=== PATIENT | male | born 1950 | race Caucasian/White ===

== ENCOUNTER 2020-05-31 01:29 | Inpatient (IN) | payer MEDICARE, OTHER ==
[2020-05-31] MEDS ORDERED: Phytonadione ORAL 2.5mg/2.5ml Soln Simple Syrup U/D PO ONE (02:04)
[2020-05-31] MEDS ORDERED: Ondansetron 4 MG/2 ML SDV IVPUSH PRN (02:05)
[2020-05-31] MEDS: Lactated Ringers 1,000 ML IV SCH ×2 (02:20→16:28)
[2020-05-31] MEDS: HYDROmorphone 1 MG/ML Syringe IVPUSH PRN ×2 (02:23→06:00)
--- NOTE | 2020-05-31 08:12 | PCM.PREANE ---
Preanesthetic Assessment - Anesthesia/Transfusion/Family Hx Anesthesia History: Prior Anesthesia Without Reaction Other Type of Anesthesia Reaction Comment: pt reports he get nauseated Family History of Anesthesia Reaction: No Transfusion History: Unknown - Review of Systems General: No Symptoms Pulmonary: No Symptoms, Other (, CPAP) Cardiovascular: No Symptoms, Other (s/p 2 stents 2014, on blood thinner, denies any cp since stents, EF reported at 42% in 2015, pt does have thoracic aortic aneurysm being monitored) Gastrointestinal: Abdominal Pain (started last night), Other (hiatal hernia present) Neurological: No Symptoms Other: Reports: Easy Bleeding, Easy Bruising (pt on coumadin), Diabetes (type 2) - Physical Assessment NPO Status Date: 05/30/20 NPO Status Time: 12:00 Vital Signs: Last Vital Signs Temp 37.2 C 05/31/20 01:47 Pulse 70 05/31/20 01:47 Resp 18 05/31/20 01:47 BP 143/84 H 05/31/20 01:47 Pulse Ox 100 05/31/20 01:47 Height: 1.8 m Weight: 119.612 kg ASA Class: 3 Mental Status: Alert & Oriented x3 Airway Class: Mallampati = 2 Dentition: Reports: Normal Dentition Thyro-Mental Finger Breadths: 3 Mouth Opening Finger Breadths: 3 ROM/Head Extension: Full Lungs: Clear to Auscultation, Normal Respiratory Effort Cardiovascular: Regular Rate, Regular Rhythm, No Murmurs - Lab Values: Laboratory Last Values WBC 11.51 K/mm3 (4.23-9.07) H 05/31/20 06:05 RBC 4.43 M/mm3 (4.63-6.08) L 05/31/20 06:05 Hgb 14.5 gm/dl (13.7-17.5) 05/31/20 06:05 Hct 43.7 % (40.1-51.0) 05/31/20 06:05 MCV 98.6 fl (79.0-92.2) H 05/31/20 06:05 MCH 32.7 pg (25.7-32.2) H 05/31/20 06:05 MCHC 33.2 g/dl (32.2-35.5) 05/31/20 06:05 RDW Std Deviation 44.7 fL (35.1-43.9) H 05/31/20 06:05 Plt Count 181 K/mm3 (163-337) 05/31/20 06:05 MPV 10.2 fl (9.4-12.3) 05/31/20 06:05 Neut % (Auto) 80.6 % (34.0-67.9) H 05/31/20 06:05 Lymph % (Auto) 10.2 % (21.8-53.1) L 05/31/20 06:05 [place] % (Auto) 8.3 % (5.3-12.2) 05/31/20 06:05 Eos % (Auto) 0.6 (0.8-7.0) L 05/31/20 06:05 Baso % (Auto) 0.2 % (0.1-1.2) 05/31/20 06:05 Neut # (Auto) 9.29 K/mm3 (1.78-5.38) H 05/31/20 06:05 Lymph # (Auto) 1.17 K/mm3 (1.32-3.57) L 05/31/20 06:05 [place] # (Auto) 0.95 K/mm3 (0.30-0.82) H 05/31/20 06:05 Eos # (Auto) 0.07 K/mm3 (0.04-0.54) 05/31/20 06:05 Baso # (Auto) 0.02 K/mm3 (0.01-0.08) 05/31/20 06:05 PT 35.6 SECONDS (9.7-11.7) H 05/31/20 06:05 INR 3.41 05/31/20 06:05 Sodium 139 mEq/L (136-145) 05/31/20 06:05 Potassium 4.4 mEq/L (3.5-5.1) 05/31/20 06:05 Chloride 102 mEq/L (98-107) 05/31/20 06:05 Carbon Dioxide 27 mEq/L (21-32) 05/31/20 06:05 Anion Gap 14.4 (5-15) 05/31/20 06:05 BUN 13 mg/dL (7-18) 05/31/20 06:05 Creatinine 1.2 mg/dL (0.7-1.3) 05/31/20 06:05 Est Cr Clr Drug Dosing 62.75 mL/min 05/31/20 06:05 Estimated GFR (MDRD) > 60 mL/min (>60) 05/31/20 06:05 BUN/Creatinine Ratio 10.8 (14-18) L 05/31/20 06:05 Glucose 132 mg/dL (80-115) H 05/31/20 06:05 Calcium 8.9 mg/dL (8.5-10.1) 05/31/20 06:05 - Allergies Allergies/Adverse Reactions: Allergies Allergy/AdvReac Type Severity Reaction Status Date / Time morphine AdvReac Nausea and Verified 05/31/20 10:58 Vomiting Abbkcim-Uom-Mct Reductase AdvReac Other Verified 05/31/20 10:58 Inhibitor - Blood Blood Available: No Product(s) Available: None - Anesthesia Plan Beta Meka: Metoprolol Med Last Dose Date: 05/30/20 Med Last Dose Time: 20:00 - Acknowledgements Anesthesia Type Planned: General Anesthesia Pt an Appropriate Candidate for the Planned Anesthesia: Yes Alternatives and Risks of Anesthesia Discussed w Pt/Guardian: Yes Pt/Guardian Understands and Agrees with Anesthesia Plan: Yes PreAnesthesia Questionnaire HEENT History: Reports: Impaired Vision, Other (See Below) Other HEENT History: pt wears glasses and is missing 3 teeth Respiratory History: Reports: Sleep Apnea Other Respiratory History: pt wears a cpap machine at night Gastrointestinal History: Reports: Other (See Below) Endocrine/Metabolic History: Reports: Obesity/BMI 30+ - Infectious Disease History Infectious Disease History: Reports: Mumps, Other (See Below) Other Infectious Disease History: pt doesn't remember if he has hadf for the childhood illnesses. - Past Surgical History HEENT Surgical History: Reports: None Cardiovascular Surgical History: Reports: Other (See Below) Other Cardiovascular Surgeries/Procedures: vena cava filter, [address] Male Surgical History: Reports: None Endocrine Surgical History: Reports: Adrenal Gland Oncologic Surgical History: Reports: None - SUBSTANCE USE Tobacco Use Status *Q: Never Tobacco User Second Hand Smoke Exposure: No Recreational Drug Use History: No - CURRENT (IN HOUSE) MEDS Current Meds: Current Medications Hydromorphone HCl (Dilaudid) 1 mg IVPUSH Q2H PRN PRN Reason: Pain Last Admin: 05/31/20 06:00 Dose: 1 mg Documented by: Lactated Ringer's (Ringers, Lactated) 1,000 mls @ 100 mls/hr IV ASDIRECTED [place] Last Admin: 05/31/20 02:20 Dose: 100 mls/hr Documented by: Ondansetron HCl (Zofran) 4 mg IVPUSH Q6H PRN PRN Reason: Nausea Discontinued Medications Phytonadione (Aquamephyton) 5 mg PO ONETIME ONE Stop: 05/31/20 02:05 Last Admin: 05/31/20 02:21 Dose: 5 mg Documented by:
[2020-05-31] MEDS ORDERED: Sodium Chloride 0.9% 250 ML IV SCH (10:45)
[2020-05-31] MEDS ORDERED: Sodium Chloride 0.9% 250 ML ONE (10:46)
--- NOTE | 2020-05-31 11:23 | PCM.HP.2 ---
H&P History of Present Illness - General Date of Service: 05/31/20 Admit Problem/Dx: Admission Diagnosis/Problem Admission Diagnosis/Problem Appendicitis Source of Information: Patient History Limitations: Reports: No Limitations - History of Present Illness Initial Comments - Free Text/Narative: Patient had RLQ abdominal pain for 4 days. It was mild to moderate. Yesterday it became acutely severe after he had dinner. It became 10/10, located in the RLQ, non-radiating, sharp, better with immobilization. He denies any fevers, chills, no prior intraabdominal operations. Onset of Symptoms: Reports: Gradual Duration of Symptoms: Reports: Day(s): (4), Getting Worse Location: Reports: Abdomen Quality: Reports: Sharp Severity: Severe Improves with: Reports: Immobilization Worsens with: Reports: Eating, Movement Associated Symptoms: Reports: No Other Symptoms Abdominal Pain Score (Numeric/FACES): 8 - Related Data Allergies/Adverse Reactions: Allergies Allergy/AdvReac Type Severity Reaction Status Date / Time morphine AdvReac Nausea and Verified 05/31/20 10:58 Vomiting Irrakiv-Uoi-Fui Reductase AdvReac Other Verified 05/31/20 10:58 Inhibitor Past Medical History HEENT History: Reports: Impaired Vision, Other (See Below) Other HEENT History: pt wears glasses and is missing 3 teeth Respiratory History: Reports: Sleep Apnea Other Respiratory History: pt wears a cpap machine at night Gastrointestinal History: Reports: Other (See Below) Endocrine/Metabolic History: Reports: Obesity/BMI 30+ Do You Give Correction Boluses or Sliding Scale: No - Infectious Disease History Infectious Disease History: Reports: Mumps, Other (See Below) Other Infectious Disease History: pt doesn't remember if he has hadf for the childhood illnesses. - Past Surgical History HEENT Surgical History: Reports: None Cardiovascular Surgical History: Reports: Other (See Below) Other Cardiovascular Surgeries/Procedures: vena cava filter, [address] Male Surgical History: Reports: None Endocrine Surgical History: Reports: Adrenal Gland Oncologic Surgical History: Reports: None Social & Family History - Family History Family Medical History: Noncontributory - Tobacco Use Tobacco Use Status *Q: Never Tobacco User Second Hand Smoke Exposure: No - Caffeine Use Caffeine Use: Reports: Coffee Other Caffeine Use: 2-3 cups every day. very rarely a pop or a tea. - Recreational Drug Use Recreational Drug Use: No H&P Review of Systems - Review of Systems: Review Of Systems: See Below General: Reports: No Symptoms HEENT: Reports: No Symptoms Pulmonary: Reports: No Symptoms Cardiovascular: Reports: No Symptoms Gastrointestinal: Reports: Abdominal Pain Genitourinary: Reports: No Symptoms Musculoskeletal: Reports: Shoulder Pain, Back Pain Neurological: Reports: Other (bilateral foot neuropathy) Exam - Exam Exam: See Below - Vital Signs Vital Signs: Last Vital Signs Temp 99.0 F 05/31/20 01:47 Pulse 70 05/31/20 01:47 Resp 18 05/31/20 01:47 BP 143/84 H 05/31/20 01:47 Pulse Ox 100 05/31/20 01:47 Weight: 119.612 kg - Exam General: Alert, Oriented, Cooperative HEENT: Conjunctiva Clear Lungs: Clear to Auscultation, Normal Respiratory Effort Cardiovascular: Regular Rate, Regular Rhythm, Normal S1, Normal S2 GI/Abdominal Exam: Soft, No Organomegaly, No Abnormal Bruit, No Mass, Pelvis Stable, Distended (slightly), Tender (RLQ,) - Patient Data Lab Results Last 24 hrs: Laboratory Results - last 24 hr 05/31/20 05/31/20 05/31/20 Range/Units 06:05 06:05 06:05 WBC 11.51 H (4.23-9.07) K/mm3 RBC 4.43 L (4.63-6.08) M/mm3 Hgb 14.5 (13.7-17.5) gm/dl Hct 43.7 (40.1-51.0) % MCV 98.6 H (79.0-92.2) fl MCH 32.7 H (25.7-32.2) pg MCHC 33.2 (32.2-35.5) g/dl RDW Std Deviation 44.7 H (35.1-43.9) fL Plt Count 181 (163-337) K/mm3 MPV 10.2 (9.4-12.3) fl Neut % (Auto) 80.6 H (34.0-67.9) % Lymph % (Auto) 10.2 L (21.8-53.1) % [place] % (Auto) 8.3 (5.3-12.2) % Eos % (Auto) 0.6 L (0.8-7.0) Baso % (Auto) 0.2 (0.1-1.2) % Neut # (Auto) 9.29 H (1.78-5.38) K/mm3 Lymph # (Auto) 1.17 L (1.32-3.57) K/mm3 [place] # (Auto) 0.95 H (0.30-0.82) K/mm3 Eos # (Auto) 0.07 (0.04-0.54) K/mm3 Baso # (Auto) 0.02 (0.01-0.08) K/mm3 PT 35.6 H (9.7-11.7) SECONDS INR 3.41 Sodium 139 (136-145) mEq/L Potassium 4.4 (3.5-5.1) mEq/L Chloride 102 (98-107) mEq/L Carbon Dioxide 27 (21-32) mEq/L Anion Gap 14.4 (5-15) BUN 13 (7-18) mg/dL Creatinine 1.2 (0.7-1.3) mg/dL Est Cr Clr Drug Dosing 62.75 mL/min Estimated GFR (MDRD) > 60 (>60) mL/min BUN/Creatinine Ratio 10.8 L (14-18) Glucose 132 H (80-115) mg/dL Calcium 8.9 (8.5-10.1) mg/dL Blood Type 05/31/20 Range/Units 06:05 WBC (4.23-9.07) K/mm3 RBC (4.63-6.08) M/mm3 Hgb (13.7-17.5) gm/dl Hct (40.1-51.0) % MCV (79.0-92.2) fl MCH (25.7-32.2) pg MCHC (32.2-35.5) g/dl RDW Std Deviation (35.1-43.9) fL Plt Count (163-337) K/mm3 MPV (9.4-12.3) fl Neut % (Auto) (34.0-67.9) % Lymph % (Auto) (21.8-53.1) % [place] % (Auto) (5.3-12.2) % Eos % (Auto) (0.8-7.0) Baso % (Auto) (0.1-1.2) % Neut # (Auto) (1.78-5.38) K/mm3 Lymph # (Auto) (1.32-3.57) K/mm3 [place] # (Auto) (0.30-0.82) K/mm3 Eos # (Auto) (0.04-0.54) K/mm3 Baso # (Auto) (0.01-0.08) K/mm3 PT (9.7-11.7) SECONDS INR Sodium (136-145) mEq/L Potassium (3.5-5.1) mEq/L Chloride (98-107) mEq/L Carbon Dioxide (21-32) mEq/L Anion Gap (5-15) BUN (7-18) mg/dL Creatinine (0.7-1.3) mg/dL Est Cr Clr Drug Dosing mL/min Estimated GFR (MDRD) (>60) mL/min BUN/Creatinine Ratio (14-18) Glucose (80-115) mg/dL Calcium (8.5-10.1) mg/dL Blood Type A POSITIVE Result Diagrams: 05/31/20 06:05 05/31/20 06:05 Sepsis Event Note - Evaluation Sepsis Screening Result: No Definite Risk - Focused Exam Vital Signs: Vital Signs Temp Pulse Resp BP Pulse Ox 05/31/20 01:47 99.0 F 70 18 143/84 H 100 Problem List Initiated/Reviewed/Updated: No Orders Last 24hrs: Active Orders 24 hr Category Date Time Status Patient Status [ADT] Routine ADT 05/31/20 11:10 Ordered Ambulate [RC] ASDIRECTED Care 05/31/20 11:09 Ordered Antiembolic Devices [RC] PER UNIT ROUTINE Care 05/31/20 11:12 Ordered Bedrest Bathroom Privileges [RC] ASDIRECTED Care 05/31/20 02:07 Active Cardiac Monitoring [RC] CONTINUOUS Care 05/31/20 11:11 Ordered Intake and Output [RC] QSHIFT Care 05/31/20 11:11 Ordered Oxygen Therapy [RC] PRN Care 05/31/20 11:10 Ordered Pulse Oximetry [RC] PRN Care 05/31/20 11:11 Ordered Up ad Sandra [RC] ASDIRECTED Care 05/31/20 11:09 Ordered Up to Chair [RC] ASDIRECTED Care 05/31/20 11:09 Ordered VTE/DVT Education [RC] PER UNIT ROUTINE Care 05/31/20 11:10 Ordered Vital Signs [RC] Q4H Care 05/31/20 11:10 Ordered NPO Now [Nothing per Oral Now Diet] [DIET] Diet 05/31/20 Breakfast Active ABO/RH TYPE [BBK] Routine Lab 05/31/20 06:05 Results BASIC METABOLIC PANEL,BMP [CHEM] AM Lab 06/01/20 05:11 Ordered BASIC METABOLIC PANEL,BMP [CHEM] AM Lab 06/02/20 05:11 Ordered BASIC METABOLIC PANEL,BMP [CHEM] AM Lab 06/03/20 05:11 Ordered CBC WITH AUTO DIFF [HEME] AM Lab 06/01/20 05:11 Ordered CBC WITH AUTO DIFF [HEME] AM Lab 06/02/20 05:11 Ordered CBC WITH AUTO DIFF [HEME] AM Lab 06/03/20 05:11 Ordered FRESH FROZEN PLASMA [BBK] Routine Lab 05/31/20 06:05 Results INR,PT,PROTHROMBIN TIME [COAG] Timed Lab 05/31/20 14:00 Ordered MAGNESIUM [CHEM] AM Lab 06/01/20 05:11 Ordered MAGNESIUM [CHEM] AM Lab 06/02/20 05:11 Ordered MAGNESIUM [CHEM] AM Lab 06/03/20 05:11 Ordered PHOSPHORUS [CHEM] AM Lab 06/01/20 05:11 Ordered PHOSPHORUS [CHEM] AM Lab 06/02/20 05:11 Ordered PHOSPHORUS [CHEM] AM Lab 06/03/20 05:11 Ordered HYDROmorphone [Dilaudid] Med 05/31/20 11:09 Ordered 0.5 mg IVPUSH Q2H PRN HYDROmorphone [Dilaudid] Med 05/31/20 02:05 Active 1 mg IVPUSH Q2H PRN Lactated Ringers [Ringers, Lactated] 1,000 ml Med 05/31/20 02:15 Active IV ASDIRECTED Ondansetron [Zofran] Med 05/31/20 02:05 Active 4 mg IVPUSH Q6H PRN Piperacillin/Tazobactam [Piperacil-Tazobact] 4.5 gm Med 05/31/20 11:15 Ordered Sodium Chloride 0.9% [Normal Saline] 100 ml IV Q8H Sodium Chloride 0.9% [Normal Saline] 250 ml Med 05/31/20 10:45 Active IV ASDIRECTED Sequential Compression Device [OM.PC] Per Unit Routine Oth 05/31/20 11:11 Ordered Transfuse Fresh Frozen Plasma [COMM] Stat Oth 05/31/20 08:18 Ordered Transfuse Fresh Frozen Plasma [COMM] Stat Oth 05/31/20 08:18 Ordered Code Status [Resuscitation Status] Routine Resus Stat 05/31/20 02:09 Ordered Medication Orders Hydromorphone HCl (Dilaudid) 1 mg IVPUSH Q2H PRN PRN Reason: Pain Last Admin: 05/31/20 06:00 Dose: 1 mg Documented by: Admin: 05/31/20 02:23 Dose: 1 mg Documented by: AKILA Lactated Ringer's (Ringers, Lactated) 1,000 mls @ 100 mls/hr IV ASDIRECTED [place] Last Admin: 05/31/20 02:20 Dose: 100 mls/hr Documented by: AKILA Sodium Chloride (Normal Saline) 250 mls @ 100 mls/hr IV ASDIRECTED [place] Stop: 05/31/20 16:00 Piperacillin Sod/Tazobactam (Sod 4.5 gm/ Sodium Chloride) 100 mls @ 25 mls/hr IV Q8H [place] Ondansetron HCl (Zofran) 4 mg IVPUSH Q6H PRN PRN Reason: Nausea Assessment/Plan Comment:: Patient has acute appendicitis with focal perforation. Cecal base appears normal. I recommended we proceed with laparoscopic appendectomy, possible open. We discussed risks, benefits and alternatives and informed consent was obtained. Patient is on coumadin for hx of provokes DVT/PT in 1999 also has IVC filter placed in 1999. - Reverse INR which is currently at 3.4. Patient has received 5mg of Vit K last night. We will give FFP for this - 2 Units, check INR, if > 1.7 give another 2 units. We will plan to proceed to surgery when INR is < 1.5 - Zosyn at this time - NPO with IVF - Pain control with IV pain medications - All questions answered
[2020-05-31] MEDS ORDERED: Piperacillin/Tazobactam 4.5 GM in Sodium Chloride 0.9% 100 ML IV ONE (12:00)
[2020-05-31] MEDS ORDERED: Scopolamine 1.5 MG Transdermal Patch TRDERM PRN (12:15)
[2020-05-31] MEDS ORDERED: diphenhydrAMINE 50 MG/ML SDV IVPUSH ONE (13:02)
[2020-05-31] MEDS ORDERED: diphenhydrAMINE 50 MG/ML SDV ONE (13:06)
[2020-05-31] MEDS: HYDROmorphone 0.5 MG/0.5 ML Syringe IVPUSH PRN ×3 (15:42→21:54)
[2020-05-31] MEDS ORDERED: Phytonadione 5 MG in Sodium Chloride 0.9% 50 ML IV ONE ×2 (17:15→23:03)
[2020-05-31] MEDS: Piperacillin/Tazobactam 4.5 GM in Sodium Chloride 0.9% 100 ML IV SCH (20:01)
[2020-06-01] MEDS: HYDROmorphone 0.5 MG/0.5 ML Syringe IVPUSH PRN ×2 (00:33→02:33)
[2020-06-01] MEDS: Piperacillin/Tazobactam 4.5 GM in Sodium Chloride 0.9% 100 ML IV SCH ×3 (03:57→20:00)
[2020-06-01] MEDS ORDERED: Metoprolol Succinate 25 MG Tab.ER PO ONE (07:34)
[2020-06-01] MEDS ORDERED: Albuterol 0.083% 2.5 MG/3 ML Neb Soln NEB ONE (07:38)
[2020-06-01] MEDS: Lactated Ringers 1,000 ML IV SCH (07:58)
[2020-06-01] MEDS ORDERED: Rocuronium 50 MG/5 ML Vial ONE (08:53)
[2020-06-01] MEDS ORDERED: Lidocaine 1% 4 ML ONE (08:53)
[2020-06-01] MEDS ORDERED: Ondansetron 4 MG/2 ML SDV ONE (08:53)
[2020-06-01] MEDS ORDERED: Lactated Ringers 1,000 ML ONE (08:53)
[2020-06-01] MEDS ORDERED: Midazolam 1 MG/ML 2 ML SDV ONE (08:54)
[2020-06-01] MEDS ORDERED: fentaNYL 250 MCG/5 ML SDV ONE (08:54)
[2020-06-01] MEDS ORDERED: Propofol 200 MG/20 ML SDV ONE ×2 (08:54→10:31)
[2020-06-01] MEDS ORDERED: Succinylcholine/Sod PF 100 MG/5 ML SYRINGE IV ONE (08:54)
[2020-06-01] MEDS ORDERED: Ketorolac 30 MG/ML SDV ONE (08:55)
[2020-06-01] MEDS ORDERED: Dexamethasone 4 MG/ML 5 ML MDV ONE (08:55)
[2020-06-01] MEDS ORDERED: Ketamine 500 mg/10 ML MDV ONE (10:30)
[2020-06-01] MEDS: Bupivacaine 0.5% 30 ML SDV ONE ×2 (10:35→10:58)
[2020-06-01] MEDS ORDERED: Ondansetron 4 MG/2 ML SDV IVPUSH PRN (11:19)
[2020-06-01] MEDS ORDERED: HYDROmorphone 0.5 MG/0.5 ML Syringe IVPUSH PRN (11:19)
[2020-06-01] MEDS ORDERED: fentaNYL 100 MCG/2 ML SDV IVPUSH PRN (11:19)
[2020-06-01] MEDS ORDERED: Magnesium Sulfate/Water 2 GM/50 ML BAG IV ONE (12:00)
--- NOTE | 2020-06-01 12:01 | PCM.POSTAN ---
POST ANESTHESIA ASSESSMENT - MENTAL STATUS Mental Status: Other (Drowsy , arousable ) - VITAL SIGNS Vital Signs: Last Vital Signs Temp 37.1 C 06/01/20 07:56 Pulse 61 06/01/20 07:56 Resp 14 06/01/20 07:56 BP 122/68 06/01/20 07:56 Pulse Ox 95 06/01/20 09:00 - RESPIRATORY Respiratory Status: Respiratory Rate WNL, Airway Patent, O2 Saturation Stable, Supplemental Oxygen (CPAP) - CARDIOVASCULAR CV Status: Pulse Rate WNL, Blood Pressure Stable - GASTROINTESTINAL GI Status: No Symptoms - PAIN Pain Score: 0 - POST OP HYDRATION Hydration Status: Adequate & Stable
--- NOTE | 2020-06-01 12:20 | PCM.PN ---
- General Info Date of Service: 06/01/20 Admission Dx/Problem (Free Text): Admission Diagnosis/Problem Admission Diagnosis/Problem Appendicitis Subjective Update: No issues overnight. Patient did well. INR is now 1.4, pain is better. no nausea or vomiting. Functional Status: Reports: Pain Controlled, Urinating - Review of Systems General: Reports: No Symptoms HEENT: Reports: No Symptoms Pulmonary: Reports: No Symptoms Cardiovascular: Reports: No Symptoms Gastrointestinal: Reports: Abdominal Pain Genitourinary: Reports: No Symptoms Musculoskeletal: Reports: No Symptoms Skin: Reports: No Symptoms Neurological: Reports: No Symptoms Psychiatric: Reports: No Symptoms - Patient Data Vitals - Most Recent: Last Vital Signs Temp 98.8 F 06/01/20 07:56 Pulse 61 06/01/20 07:56 Resp 14 06/01/20 07:56 BP 122/68 06/01/20 07:56 Pulse Ox 95 06/01/20 09:00 Weight - Most Recent: 119.862 kg I&O - Last 24 Hours: Intake & Output 05/31/20 06/01/20 06/01/20 22:59 06:59 14:59 Intake Total 900 1150 Output Total 125 200 325 Balance 775 950 -325 Lab Results Last 24 Hours: Laboratory Results - last 24 hr 05/31/20 05/31/20 05/31/20 Range/Units 06:05 16:54 22:10 WBC (4.23-9.07) K/mm3 RBC (4.63-6.08) M/mm3 Hgb (13.7-17.5) gm/dl Hct (40.1-51.0) % MCV (79.0-92.2) fl MCH (25.7-32.2) pg MCHC (32.2-35.5) g/dl RDW Std Deviation (35.1-43.9) fL Plt Count (163-337) K/mm3 MPV (9.4-12.3) fl Neut % (Auto) (34.0-67.9) % Lymph % (Auto) (21.8-53.1) % [place] % (Auto) (5.3-12.2) % Eos % (Auto) (0.8-7.0) Baso % (Auto) (0.1-1.2) % Neut # (Auto) (1.78-5.38) K/mm3 Lymph # (Auto) (1.32-3.57) K/mm3 [place] # (Auto) (0.30-0.82) K/mm3 Eos # (Auto) (0.04-0.54) K/mm3 Baso # (Auto) (0.01-0.08) K/mm3 PT 21.5 H D 18.6 H (9.7-11.7) SECONDS INR 2.04 1.76 Sodium (136-145) mEq/L Potassium (3.5-5.1) mEq/L Chloride (98-107) mEq/L Carbon Dioxide (21-32) mEq/L Anion Gap (5-15) BUN (7-18) mg/dL Creatinine (0.7-1.3) mg/dL Est Cr Clr Drug Dosing mL/min Estimated GFR (MDRD) (>60) mL/min BUN/Creatinine Ratio (14-18) Glucose (80-115) mg/dL Calcium (8.5-10.1) mg/dL Phosphorus (2.6-4.7) mg/dL Magnesium (1.8-2.4) mg/dl Blood Type A POSITIVE 06/01/20 06/01/20 06/01/20 Range/Units 05:56 05:56 05:56 WBC 9.13 H (4.23-9.07) K/mm3 RBC 3.85 L (4.63-6.08) M/mm3 Hgb 12.6 L D (13.7-17.5) gm/dl Hct 38.6 L (40.1-51.0) % MCV 100.3 H (79.0-92.2) fl MCH 32.7 H (25.7-32.2) pg MCHC 32.6 (32.2-35.5) g/dl RDW Std Deviation 45.1 H (35.1-43.9) fL Plt Count 156 L (163-337) K/mm3 MPV 10.1 (9.4-12.3) fl Neut % (Auto) 79.9 H (34.0-67.9) % Lymph % (Auto) 11.5 L (21.8-53.1) % [place] % (Auto) 7.4 (5.3-12.2) % Eos % (Auto) 0.9 (0.8-7.0) Baso % (Auto) 0.2 (0.1-1.2) % Neut # (Auto) 7.29 H (1.78-5.38) K/mm3 Lymph # (Auto) 1.05 L (1.32-3.57) K/mm3 [place] # (Auto) 0.68 (0.30-0.82) K/mm3 Eos # (Auto) 0.08 (0.04-0.54) K/mm3 Baso # (Auto) 0.02 (0.01-0.08) K/mm3 PT 15.2 H (9.7-11.7) SECONDS INR 1.43 Sodium 140 (136-145) mEq/L Potassium 3.9 (3.5-5.1) mEq/L Chloride 103 (98-107) mEq/L Carbon Dioxide 27 (21-32) mEq/L Anion Gap 13.9 (5-15) BUN 12 (7-18) mg/dL Creatinine 1.0 (0.7-1.3) mg/dL Est Cr Clr Drug Dosing 75.30 mL/min Estimated GFR (MDRD) > 60 (>60) mL/min BUN/Creatinine Ratio 12.0 L (14-18) Glucose 115 (80-115) mg/dL Calcium 9.0 (8.5-10.1) mg/dL Phosphorus 2.8 (2.6-4.7) mg/dL Magnesium 1.7 L (1.8-2.4) mg/dl Blood Type Med Orders - Current: Current Medications Fentanyl (Sublimaze) 50 mcg IVPUSH Q5M PRN PRN Reason: Pain Stop: 06/01/20 13:30 Hydromorphone HCl (Dilaudid) 0.5 mg IVPUSH Q2H PRN PRN Reason: Pain (severe 7-10) Last Admin: 06/01/20 02:33 Dose: 0.5 mg Documented by: Hydromorphone HCl (Dilaudid) 0.5 mg IVPUSH Q10M PRN PRN Reason: Pain (severe 7-10) Stop: 06/01/20 13:30 Lactated Ringer's (Ringers, Lactated) 1,000 mls @ 100 mls/hr IV ASDIRECTED [facility] Last Admin: 06/01/20 07:58 Dose: 100 mls/hr Documented by: Piperacillin Sod/Tazobactam (Sod 4.5 gm/ Sodium Chloride) 100 mls @ 25 mls/hr IV Q8H [facility] Last Admin: 06/01/20 03:57 Dose: 25 mls/hr Documented by: Magnesium Sulfate (Magnesium Sulfate In Water Premix) 2 gm in 50 mls @ 25 mls/hr IV ONETIME ONE Stop: 06/01/20 13:59 Miscellaneous Information (Remove Patch) 1 ea TRDERM ONETIME ONE Stop: 06/03/20 13:01 Ondansetron HCl (Zofran) 4 mg IVPUSH Q6H PRN PRN Reason: Nausea Ondansetron HCl (Zofran) 4 mg IVPUSH ONETIME PRN PRN Reason: Nausea/Vomiting Stop: 06/01/20 13:30 Discontinued Medications Albuterol (Proventil Neb Soln) 2.5 mg NEB ONETIME ONE Stop: 06/01/20 07:39 Last Admin: 06/01/20 09:00 Dose: 2.5 mg Documented by: Bupivacaine HCl (Marcaine 0.5%) Confirm Administered Dose 30 ml .ROUTE .STK-MED ONE Stop: 06/01/20 09:06 Last Admin: 06/01/20 10:58 Dose: 30 ml Documented by: Dexamethasone (Dexamethasone) Confirm Administered Dose 20 mg .ROUTE .STK-MED ONE Stop: 06/01/20 08:56 Diphenhydramine HCl (Benadryl) 25 mg IVPUSH ONETIME ONE Stop: 05/31/20 13:03 Last Admin: 05/31/20 13:12 Dose: 25 mg Documented by: Diphenhydramine HCl (Benadryl) Confirm Administered Dose 50 mg .ROUTE .STK-MED ONE Stop: 05/31/20 13:07 Last Admin: 05/31/20 13:14 Dose: Not Given Documented by: Fentanyl (Sublimaze) Confirm Administered Dose 250 mcg .ROUTE .STK-MED ONE Stop: 06/01/20 08:55 Glycopyrrolate (Robinul) Confirm Administered Dose 0.4 mg .ROUTE .STK-MED ONE Stop: 06/01/20 11:23 Hydromorphone HCl (Dilaudid) 1 mg IVPUSH Q2H PRN PRN Reason: Pain Last Admin: 05/31/20 06:00 Dose: 1 mg Documented by: Sodium Chloride (Normal Saline) 250 mls @ 100 mls/hr IV ASDIRECTED [place] Stop: 05/31/20 16:00 Sodium Chloride (Normal Saline (Advbag)) Confirm Administered Dose 250 mls @ as directed .ROUTE .STK-MED ONE Stop: 05/31/20 10:47 Last Admin: 05/31/20 11:14 Dose: 100 mls/hr Documented by: Piperacillin Sod/Tazobactam (Sod 4.5 gm/ Sodium Chloride) 100 mls @ 200 mls/hr IV ONETIME ONE Stop: 05/31/20 12:29 Last Admin: 05/31/20 13:13 Dose: 200 mls/hr Documented by: Phytonadione 5 mg/ Sodium (Chloride) 50.5 mls @ 100 mls/hr IV ONETIME ONE Stop: 05/31/20 17:45 Last Admin: 05/31/20 17:36 Dose: 100 mls/hr Documented by: Phytonadione 5 mg/ Sodium (Chloride) 50.5 mls @ 100 mls/hr IV NOW ONE Stop: 05/31/20 23:33 Last Admin: 05/31/20 23:50 Dose: 100 mls/hr Documented by: Lidocaine HCl (Xylocaine-Mpf 1%) Confirm Administered Dose 4 mls @ as directed .ROUTE .STK-MED ONE Stop: 06/01/20 08:54 Lactated Ringer's (Ringers, Lactated) Confirm Administered Dose 1,000 mls @ as directed .ROUTE .STK-MED ONE Stop: 06/01/20 08:54 Ketamine HCl (Ketalar) Confirm Administered Dose 500 mg .ROUTE .STK-MED ONE Stop: 06/01/20 10:31 Ketorolac Tromethamine (Toradol) Confirm Administered Dose 30 mg .ROUTE .STK-MED ONE Stop: 06/01/20 08:56 Metoprolol Succinate (Toprol Xl) 25 mg PO ONETIME ONE Stop: 06/01/20 07:35 Last Admin: 06/01/20 07:52 Dose: 25 mg Documented by: Midazolam HCl (Versed 1 Mg/Ml) Confirm Administered Dose 2 mg .ROUTE .STK-MED ONE Stop: 06/01/20 08:55 Neostigmine Methylsulfate (Neostigmine Methylsulfate) Confirm Administered Dose 5 mg .ROUTE .STK-MED ONE Stop: 06/01/20 11:23 Ondansetron HCl (Zofran) Confirm Administered Dose 4 mg .ROUTE .STK-MED ONE Stop: 06/01/20 08:54 Phytonadione (Aquamephyton) 5 mg PO ONETIME ONE Stop: 05/31/20 02:05 Last Admin: 05/31/20 02:21 Dose: 5 mg Documented by: Propofol (Diprivan 20 Ml) Confirm Administered Dose 400 mg .ROUTE .STK-MED ONE Stop: 06/01/20 08:55 Propofol (Diprivan 20 Ml) Confirm Administered Dose 200 mg .ROUTE .STK-MED ONE Stop: 06/01/20 10:32 Rocuronium [place] (Zemuron) Confirm Administered Dose 50 mg .ROUTE .STK-MED ONE Stop: 06/01/20 08:54 Scopolamine (Transderm-Scop) 1.5 mg TRDERM ONETIME PRN PRN Reason: PONV Last Admin: 05/31/20 13:12 Dose: 1.5 mg Documented by: - Exam General: Alert, Oriented, Cooperative Lungs: Clear to Auscultation, Normal Respiratory Effort Cardiovascular: Regular Rate, Regular Rhythm, No Murmurs GI/Abdominal Exam: Soft, No Organomegaly, No Distention, No Abnormal Bruit, No Mass, Tender (RLQ) Sepsis Event Note - Evaluation Sepsis Screening Result: No Definite Risk - Focused Exam Vital Signs: Vital Signs Temp Pulse Resp BP Pulse Ox Pulse Ox 06/01/20 09:00 95 06/01/20 07:56 98.8 F 61 14 122/68 96 06/01/20 07:52 60 122/68 06/01/20 04:09 99.1 F 64 16 133/67 94 L 06/01/20 03:00 92 L 06/01/20 00:18 99.9 F 65 14 147/66 H 93 L - Problem List Review Problem List Initiated/Reviewed/Updated: No - My Orders Last 24 Hours: My Active Orders 05/31/20 20:00 Piperacillin/Tazobactam [Piperacil-Tazobact] 4.5 gm Sodium Chloride 0.9% [Normal Saline] 100 ml IV Q8H 06/01/20 12:00 Magnesium Sulfate/Water [Magnesium Sulfate in Water Premix] 2 gm in 50 ml IV ONETIME 06/01/20 Dinner Clear Liquid Diet [DIET] 06/02/20 05:11 BASIC METABOLIC PANEL,BMP [CHEM] AM CBC WITH AUTO DIFF [HEME] AM MAGNESIUM [CHEM] AM PHOSPHORUS [CHEM] AM 06/03/20 05:11 BASIC METABOLIC PANEL,BMP [CHEM] AM CBC WITH AUTO DIFF [HEME] AM MAGNESIUM [CHEM] AM PHOSPHORUS [CHEM] AM - Assessment Assessment:: POD0 s/p lap appendectomy for perforated appendicitis. - Plan Plan:: - COntinue zosyn - start clears now, if tolerates, advance to regular diet for dinner - continue IVF - Restart home meds including warfarin today - encourage ambulation - encourage IS - WIll start Lovenox tomorrow, and if pt doing well can dc to home tomorrow with short term PO abx.
--- NOTE | 2020-06-01 12:29 | OR ---
DATE OF OPERATION: 06/01/2020 SURGEON: Tiffany Salinas MD PREOPERATIVE DIAGNOSIS: Acute perforated appendicitis. POSTOPERATIVE DIAGNOSIS: Acute perforated appendicitis. OPERATION PERFORMED: Laparoscopic appendectomy, abdominal washout. ESTIMATED BLOOD LOSS: 5 mL. ANESTHESIA: General endotracheal. COMPLICATIONS: None. DRAINS: None. INDICATION AND CONSENT: Mr. Donahue is a 69-year-old male who presented to [place] ED with right lower quadrant abdominal pain. Patient's CT scan revealed inflamed appendicitis with periappendiceal fluid at the tip of the appendix. The patient was transferred to our hospital and admitted for this acute appendicitis. Unfortunately, the patient has history of DVT and PE. Therefore, patient has been on Coumadin. INR at admission was 3.4. Because of the high elevated INR, we did not proceed to surgery right away. The patient was placed on antibiotics and given FFP and vitamin K. The next day, which is today, INR was 1.4 after reversal; therefore, we elected to proceed with the surgery. I did discuss the patient and his . Risks, benefits, and alternatives to the surgery and informed consent was obtained. DESCRIPTION OF PROCEDURE: The patient was taken to the operating room, placed in supine position and padded appropriately. SCDs were placed. A time-out was performed. Then, the patient was intubated. Then, abdomen was prepped and draped in the usual sterile fashion. The patient was already on Zosyn, therefore, 1 dose was given an hour early right before the operation. Then, we draped the patient and proceeded with the surgery. Local anesthetic was injected in the infraumbilical position. Incision was made at this site and the Veress needle was inserted after elevating the umbilical stalk. The abdomen was insufflated to 15 mmHg. Then, a 12 mm trocar was placed under direct visualization with the laparoscope. Then, 2 additional 5 mm trocars were placed, one in the left lower quadrant and another one in the suprapubic position. Then, the abdomen was inspected. There was no injury due to the Veress needle or trocar insertions. There was no bleeding from trocar sites. Then, attention was turned to the right lower abdomen. There was inflammation and the appendix was tacked to the abdominal wall. Appendix was slowly peeled off the abdominal wall. There was immediate expression of pus towards the distal appendix indicating perforation. There was clear area of perforation in the appendix. Suction professor of communication was used to suction all the purulent material from the abdomen and it was not too much, probably about 5 mL of purulent material was suctioned out. Then, the cecum was inspected and the appendiceal base, both of which were noninflamed. Just distal to the appendiceal base, there was a little dilation and masslike feeling at the site. Then, a window was made in the appendiceal base and the appendix was taken with a blue load using an Endo-PHOENIX stapler, it was taken right at the cecum. Then, the LigaSure Impact was used to transect the mesoappendix. There was no bleeding and the appendix was placed in the EndoCatch bag. At the area of inflammation, there was some proteinaceous exudate at the site. These were taken off, and then, the area of inflammation and the area of dissection were irrigated with 1 L of normal saline and the irrigant was suctioned out. Irrigant was clear. Then, the abdomen was inspected again. There was no other abnormalities noted. The specimen was taken out through the infraumbilical incision, and then, the fascia at the infraumbilical incision was closed with 0 Vicryl stitches using a Wale-Rob device and then skin at all 3 incision sites were closed with 0 Monocryl and then Dermabond was applied. This marked the end of the procedure. At the end of the procedure, all instruments, sharps, and sponges were counted and found to be correct x2. The patient was awoken from anesthesia and taken to the PACU in stable condition. The patient will be returned to the floor. Continue antibiotics for a day till tomorrow. We will start the patient on anticoagulation with Lovenox and warfarin. The patient is to be discharged likely tomorrow to follow up in clinic in 2 weeks. MMODAL /[id number] MARK
[2020-06-01] MEDS ORDERED: oxyCODONE 5 MG Tab PO PRN (12:55)
[2020-06-01] MEDS: Gabapentin 600 MG Tab PO SCH (13:56)
[2020-06-01] MEDS ORDERED: Warfarin 5 MG Tab PO SCH (18:00)
[2020-06-01] MEDS: Acetaminophen 325 MG Tab PO SCH ×2 (18:10→21:07)
[2020-06-01] MEDS: Fish Oil/Omega-3 Fatty Acids 1 Gm Cap PO SCH (21:07)
[2020-06-01] MEDS: Gabapentin 300 MG Cap PO SCH (21:08)
[2020-06-02] MEDS: Lactated Ringers 1,000 ML IV SCH (00:22)
[2020-06-02] MEDS: Piperacillin/Tazobactam 4.5 GM in Sodium Chloride 0.9% 100 ML IV SCH ×2 (04:12→19:37)
[2020-06-02] MEDS ORDERED: Metoprolol Succinate 25 MG Tab.ER PO SCH (09:00)
[2020-06-02] MEDS ORDERED: Cholecalciferol (Vitamin D3) 25 MCG Tab PO SCH (09:00)
[2020-06-02] MEDS ORDERED: Phosphorus #1 250 MG Tab PO ONE (09:08)
--- NOTE | 2020-06-02 09:40 | PCM.PN ---
- General Info Date of Service: 06/02/20 Admission Dx/Problem (Free Text): Admission Diagnosis/Problem Admission Diagnosis/Problem Appendicitis Subjective Update: Patient is passing flatus, tolerating diet, pain is controlled. no nausea or vomiting. Functional Status: Reports: Pain Controlled, Tolerating Diet, Ambulating, Urinating - Review of Systems General: Reports: No Symptoms HEENT: Reports: No Symptoms Pulmonary: Reports: No Symptoms Cardiovascular: Reports: No Symptoms Gastrointestinal: Reports: Abdominal Pain Genitourinary: Reports: No Symptoms Musculoskeletal: Reports: No Symptoms Skin: Reports: No Symptoms Neurological: Reports: No Symptoms Psychiatric: Reports: No Symptoms - Patient Data Vitals - Most Recent: Last Vital Signs Temp 97.9 F 06/02/20 02:55 Pulse 56 L 06/02/20 04:06 Resp 18 06/02/20 02:55 BP 139/57 L 06/02/20 02:55 Pulse Ox 97 06/02/20 05:31 Weight - Most Recent: 119.748 kg I&O - Last 24 Hours: Intake & Output 06/01/20 06/02/20 06/02/20 22:59 06:59 14:59 Intake Total 1384 500 Output Total 1300 Balance 1384 -800 Lab Results Last 24 Hours: Laboratory Results - last 24 hr 06/01/20 06/02/20 06/02/20 Range/Units 13:05 04:13 04:13 WBC 9.78 H (4.23-9.07) K/mm3 RBC 3.62 L (4.63-6.08) M/mm3 Hgb 11.6 L (13.7-17.5) gm/dl Hct 36.5 L (40.1-51.0) % MCV 100.8 H (79.0-92.2) fl MCH 32.0 (25.7-32.2) pg MCHC 31.8 L (32.2-35.5) g/dl RDW Std Deviation 43.8 (35.1-43.9) fL Plt Count 166 (163-337) K/mm3 MPV 10.7 (9.4-12.3) fl Neut % (Auto) 85.2 H (34.0-67.9) % Lymph % (Auto) 7.6 L (21.8-53.1) % [place] % (Auto) 7.0 (5.3-12.2) % Eos % (Auto) 0 L (0.8-7.0) Baso % (Auto) 0.0 L (0.1-1.2) % Neut # (Auto) 8.34 H (1.78-5.38) K/mm3 Lymph # (Auto) 0.74 L (1.32-3.57) K/mm3 [place] # (Auto) 0.68 (0.30-0.82) K/mm3 Eos # (Auto) 0.00 L (0.04-0.54) K/mm3 Baso # (Auto) 0.00 L (0.01-0.08) K/mm3 Manual Slide Review Abnormal smear PT 14.5 H (9.7-11.7) SECONDS INR 1.36 Sodium 138 (136-145) mEq/L Potassium 4.2 (3.5-5.1) mEq/L Chloride 103 (98-107) mEq/L Carbon Dioxide 28 (21-32) mEq/L Anion Gap 11.2 (5-15) BUN 16 (7-18) mg/dL Creatinine 1.1 (0.7-1.3) mg/dL Est Cr Clr Drug Dosing 68.45 mL/min Estimated GFR (MDRD) > 60 (>60) mL/min BUN/Creatinine Ratio 14.5 (14-18) Glucose 144 H (80-115) mg/dL Calcium 8.7 (8.5-10.1) mg/dL Phosphorus 2.5 L (2.6-4.7) mg/dL Magnesium 2.3 (1.8-2.4) mg/dl Med Orders - Current: Current Medications Acetaminophen (Tylenol) 650 mg PO TID [facility] Last Admin: 06/01/20 21:07 Dose: 650 mg Documented by: Cholecalciferol (Vitamin D3) 25 mcg PO DAILY [facility] Fish Oil (Fish Oil) 1 gm PO BID [facility] Last Admin: 06/01/20 21:07 Dose: 1 gm Documented by: Gabapentin (Neurontin) 900 mg PO BID [facility] Last Admin: 06/01/20 21:08 Dose: 900 mg Documented by: Gabapentin (Neurontin) 1,200 mg PO 1200 [facility] Last Admin: 06/01/20 13:56 Dose: 1,200 mg Documented by: Hydromorphone HCl (Dilaudid) 0.5 mg IVPUSH Q2H PRN PRN Reason: Pain (severe 7-10) Last Admin: 06/01/20 02:33 Dose: 0.5 mg Documented by: Lactated Ringer's (Ringers, Lactated) 1,000 mls @ 100 mls/hr IV ASDIRECTED [facility] Last Admin: 06/02/20 00:22 Dose: 100 mls/hr Documented by: Piperacillin Sod/Tazobactam (Sod 4.5 gm/ Sodium Chloride) 100 mls @ 25 mls/hr IV Q8H [facility] Last Admin: 06/02/20 04:12 Dose: 25 mls/hr Documented by: Metoprolol Succinate (Toprol Xl) 25 mg PO DAILY [facility] Miscellaneous Information (Remove Patch) 1 ea TRDERM ONETIME ONE Stop: 06/03/20 13:01 Ondansetron HCl (Zofran) 4 mg IVPUSH Q6H PRN PRN Reason: Nausea Oxycodone HCl (Oxycodone) 5 mg PO Q4H PRN PRN Reason: Abdominal Pain [facility]farin Sodium (Coumadin) 10 mg PO [facility] Last Admin: 06/01/20 18:13 Dose: 10 mg Documented by: Discontinued Medications Albuterol (Proventil Neb Soln) 2.5 mg NEB ONETIME ONE Stop: 06/01/20 07:39 Last Admin: 06/01/20 09:00 Dose: 2.5 mg Documented by: Bupivacaine HCl (Marcaine 0.5%) Confirm Administered Dose 30 ml .ROUTE .STK-MED ONE Stop: 06/01/20 09:06 Last Admin: 06/01/20 10:35 Dose: 28 ml Documented by: Dexamethasone (Dexamethasone) Confirm Administered Dose 20 mg .ROUTE .STK-MED ONE Stop: 06/01/20 08:56 Diphenhydramine HCl (Benadryl) 25 mg IVPUSH ONETIME ONE Stop: 05/31/20 13:03 Last Admin: 05/31/20 13:12 Dose: 25 mg Documented by: Diphenhydramine HCl (Benadryl) Confirm Administered Dose 50 mg .ROUTE .STK-MED ONE Stop: 05/31/20 13:07 Last Admin: 05/31/20 13:14 Dose: Not Given Documented by: Fentanyl (Sublimaze) Confirm Administered Dose 250 mcg .ROUTE .STK-MED ONE Stop: 06/01/20 08:55 Fentanyl (Sublimaze) 50 mcg IVPUSH Q5M PRN PRN Reason: Pain Stop: 06/01/20 13:30 Gabapentin (Neurontin) 1,200 mg PO 1200 [place] Glycopyrrolate (Robinul) Confirm Administered Dose 0.4 mg .ROUTE .STK-MED ONE Stop: 06/01/20 11:23 Hydromorphone HCl (Dilaudid) 1 mg IVPUSH Q2H PRN PRN Reason: Pain Last Admin: 05/31/20 06:00 Dose: 1 mg Documented by: Hydromorphone HCl (Dilaudid) 0.5 mg IVPUSH Q10M PRN PRN Reason: Pain (severe 7-10) Stop: 06/01/20 13:30 Sodium Chloride (Normal Saline) 250 mls @ 100 mls/hr IV ASDIRECTED [facility] Stop: 05/31/20 16:00 Sodium Chloride (Normal Saline (Advbag)) Confirm Administered Dose 250 mls @ as directed .ROUTE .STK-MED ONE Stop: 05/31/20 10:47 Last Admin: 05/31/20 11:14 Dose: 100 mls/hr Documented by: Piperacillin Sod/Tazobactam (Sod 4.5 gm/ Sodium Chloride) 100 mls @ 200 mls/hr IV ONETIME ONE Stop: 05/31/20 12:29 Last Admin: 05/31/20 13:13 Dose: 200 mls/hr Documented by: Phytonadione 5 mg/ Sodium (Chloride) 50.5 mls @ 100 mls/hr IV ONETIME ONE Stop: 05/31/20 17:45 Last Admin: 05/31/20 17:36 Dose: 100 mls/hr Documented by: Phytonadione 5 mg/ Sodium (Chloride) 50.5 mls @ 100 mls/hr IV NOW ONE Stop: 05/31/20 23:33 Last Admin: 05/31/20 23:50 Dose: 100 mls/hr Documented by: Lidocaine HCl (Xylocaine-Mpf 1%) Confirm Administered Dose 4 mls @ as directed .ROUTE .STK-MED ONE Stop: 06/01/20 08:54 Lactated Ringer's (Ringers, Lactated) Confirm Administered Dose 1,000 mls @ as directed .ROUTE .STK-MED ONE Stop: 06/01/20 08:54 Magnesium Sulfate (Magnesium Sulfate In Water Premix) 2 gm in 50 mls @ 25 mls/hr IV ONETIME ONE Stop: 06/01/20 13:59 Last Admin: 06/01/20 13:58 Dose: 25 mls/hr Documented by: Ketamine HCl (Ketalar) Confirm Administered Dose 500 mg .ROUTE .STK-MED ONE Stop: 06/01/20 10:31 Ketorolac Tromethamine (Toradol) Confirm Administered Dose 30 mg .ROUTE .STK-MED ONE Stop: 06/01/20 08:56 Metoprolol Succinate (Toprol Xl) 25 mg PO ONETIME ONE Stop: 06/01/20 07:35 Last Admin: 06/01/20 07:52 Dose: 25 mg Documented by: Midazolam HCl (Versed 1 Mg/Ml) Confirm Administered Dose 2 mg .ROUTE .STK-MED ONE Stop: 06/01/20 08:55 Neostigmine Methylsulfate (Neostigmine Methylsulfate) Confirm Administered Dose 5 mg .ROUTE .STK-MED ONE Stop: 06/01/20 11:23 Ondansetron HCl (Zofran) Confirm Administered Dose 4 mg .ROUTE .STK-MED ONE Stop: 06/01/20 08:54 Ondansetron HCl (Zofran) 4 mg IVPUSH ONETIME PRN PRN Reason: Nausea/Vomiting Stop: 06/01/20 13:30 Phytonadione (Aquamephyton) 5 mg PO ONETIME ONE Stop: 05/31/20 02:05 Last Admin: 05/31/20 02:21 Dose: 5 mg Documented by: Propofol (Diprivan 20 Ml) Confirm Administered Dose 400 mg .ROUTE .STK-MED ONE Stop: 06/01/20 08:55 Propofol (Diprivan 20 Ml) Confirm Administered Dose 200 mg .ROUTE .STK-MED ONE Stop: 06/01/20 10:32 Rocuronium [place] (Zemuron) Confirm Administered Dose 50 mg .ROUTE .STK-MED ONE Stop: 06/01/20 08:54 Scopolamine (Transderm-Scop) 1.5 mg TRDERM ONETIME PRN PRN Reason: PONV Last Admin: 05/31/20 13:12 Dose: 1.5 mg Documented by: Sodium Phosphate (Neutra-Phos) 250 mg PO ONETIME ONE Stop: 06/02/20 09:09 - Exam General: Alert, Oriented, Cooperative Lungs: Clear to Auscultation, Normal Respiratory Effort Cardiovascular: Regular Rate, Regular Rhythm, No Murmurs GI/Abdominal Exam: Soft, No Organomegaly, No Distention, No Abnormal Bruit, No Mass, Tender (appropriately) Sepsis Event Note - Evaluation Sepsis Screening Result: No Definite Risk - Focused Exam Vital Signs: Vital Signs Temp Pulse Resp BP Pulse Ox Pulse Ox 06/02/20 05:31 97 06/02/20 04:06 56 L 96 06/02/20 02:55 97.9 F 57 L 18 139/57 L 100 06/02/20 01:00 96 06/02/20 00:25 97.7 F 56 L 16 138/62 97 06/01/20 22:16 63 95 - Problem List Review Problem List Initiated/Reviewed/Updated: No - My Orders Last 24 Hours: My Active Orders 06/01/20 12:00 Gabapentin [Neurontin] 1,200 mg PO 1200 06/01/20 12:55 oxyCODONE 5 mg PO Q4H PRN 06/01/20 16:14 Incentive Spirometry [RT Incentive Spirometry] [RC] Q1HWA 06/01/20 Dinner Regular Diet [DIET] 06/01/20 18:00 Acetaminophen [TylenoL] 650 mg PO TID Warfarin [Coumadin] 10 mg PO SUTUTHSA 06/01/20 21:00 Fish Oil/Sayner-3 Fatty Acids [Fish Oil] 1 gm PO BID Gabapentin [Neurontin] 900 mg PO BID 06/02/20 09:00 Cholecalciferol (Vitamin D3) [Vitamin D3] 25 mcg PO DAILY Metoprolol Succinate [Toprol XL] 25 mg PO DAILY 06/02/20 18:00 Warfarin [Coumadin] 7.5 mg PO [id number] 06/03/20 05:11 BASIC METABOLIC PANEL,BMP [CHEM] AM CBC WITH AUTO DIFF [HEME] AM MAGNESIUM [CHEM] AM PHOSPHORUS [CHEM] AM - Assessment Assessment:: POD1 s/p lap appendectomy for perforated appendicitis. - Plan Plan:: - Patient is progressing well. - tolerating diet, ambulating, on RA, pain is controlled. - Will start lovenox injections today. Patient will check INR in 5 days at [facility] - Follow up with me in 7-10 days.
[2020-06-02] MEDS: Fish Oil/Omega-3 Fatty Acids 1 Gm Cap PO SCH (09:45)
[2020-06-02] MEDS: Gabapentin 300 MG Cap PO SCH (09:45)
[2020-06-02] MEDS: Acetaminophen 325 MG Tab PO SCH (09:47)
[2020-06-02 09:49] VITALS: BP 126/68; PULSE 69
[2020-06-02] MEDS ORDERED: Enoxaparin 100 MG/1 ML Syringe SUBCUT SCH (10:00)
--- NOTE | 2020-06-02 10:05 | PCM.DCSUM1 ---
Discharge Summary - Hospital Course HPI Initial Comments: Patient had acute perforated appendicitis and INR of 3.4. He was admitted, placed on antibiotics and INR reversed with a combination of vitamin K and FFP. The patient underwent laparoscopic appendectomy and did well post operatively. He will be bridged with Lovenox while at home. FOllow up with me in 7-10 days. Diagnosis: Stroke: No - Discharge Data Discharge Date: 06/02/20 Discharge Disposition: Home, Self-Care 01 Condition: Good - Referral to Home Health Primary Care Physician: Tiffany Salinas MD - Patient Instructions Diet: Regular Diet as Tolerated Activity: No Lifting Over 20 Pounds (for two weeks) Driving: Do Not Drive (until 24 hrs after taking opioid pain medications) Showering/Bathing: May Shower Wound/Incision Care: Keep Operative Site/Wound Site Clean and Dry Notify Provider of: Fever, Increased Pain, Nausea and/or Vomiting Other/Special Instructions: - Check INR in 5 days (on Thursday 06/07), if therapeutic, then stop lovenox. If not, then check every other day till therapsutic ie INR > 2) - Discharge Plan *PRESCRIPTION DRUG MONITORING PROGRAM REVIEWED*: No *COPY OF PRESCRIPTION DRUG MONITORING REPORT IN PATIENT FELY: No Prescriptions/Med Rec: Amoxicillin/Clavulanate K [Augmentin 875-125 MG] 1 tab PO BID 3 Days #6 tablet Docusate Sodium [Colace] 100 mg PO BID 15 Days #30 capsule Enoxaparin [Lovenox] 100 mg SUBCUT Q12H 10 Days #20 syringe oxyCODONE 5 mg PO Q6H PRN #12 tablet PRN Reason: Abdominal Pain Home Medications: Home Meds Acetaminophen [Tylenol] 650 mg PO TID 05/31/20 [History] Cholecalciferol (Vitamin D3) [Vitamin D3] 1,000 unit PO DAILY 05/31/20 [History] Fish Oil/Sublette-3 Fatty Acids [Fish Oil 1,000 MG] 1 tab PO BID 05/31/20 [History] Gabapentin [Neurontin] 1,200 mg PO 1200 05/31/20 [History] Gabapentin [Neurontin] 900 mg PO BID 05/31/20 [History] Metoprolol Succinate 25 mg PO DAILY 05/31/20 [History] Nitroglycerin [Nitrostat] 0.4 mg SL ASDIRECTED 05/31/20 [History] Warfarin Sodium [Jantoven] 7.5 mg PO MOWEFR 05/31/20 [History] Warfarin Sodium [Jantoven] 10 mg PO SUTUTHSA 05/31/20 [History] Zinc 1 tab PO DAILY 05/31/20 [History] Amoxicillin/Clavulanate K [Augmentin 875-125 MG] 1 tab PO BID 3 Days #6 tablet 06/02/20 [Rx] Docusate Sodium [Colace] 100 mg PO BID 15 Days #30 capsule 06/02/20 [Rx] Enoxaparin [Lovenox] 100 mg SUBCUT Q12H 10 Days #20 syringe 06/02/20 [Rx] oxyCODONE 5 mg PO Q6H PRN #12 tablet 06/02/20 [Rx] Oxygen Therapy Mode: Room Air Referrals: Tiffany Salinas MD [Primary Care Provider] - (Follow up in 7-10 days) - Discharge Summary/Plan Comment DC Time >30 min.: Yes - General Info Date of Service: 06/02/20 Admission Dx/Problem (Free Text: Admission Diagnosis/Problem Admission Diagnosis/Problem Appendicitis Subjective Update: Tolerating diet, ambulating, urinating, pain is controlled. Functional Status: Reports: Pain Controlled, Tolerating Diet, Ambulating, Urinating - Review of Systems General: Reports: No Symptoms HEENT: Reports: No Symptoms Pulmonary: Reports: No Symptoms Cardiovascular: Reports: No Symptoms Gastrointestinal: Reports: Abdominal Pain (RLQ) Genitourinary: Reports: No Symptoms Musculoskeletal: Reports: No Symptoms Skin: Reports: No Symptoms Neurological: Reports: No Symptoms Psychiatric: Reports: No Symptoms - Patient Data Vitals - Most Recent: Last Vital Signs Temp 97.9 F 06/02/20 02:55 Pulse 69 06/02/20 09:46 Resp 18 06/02/20 02:55 BP 126/68 06/02/20 09:46 Pulse Ox 97 06/02/20 05:31 Weight - Most Recent: 119.748 kg I&O - Last 24 hours: Intake & Output 06/01/20 06/02/20 06/02/20 22:59 06:59 14:59 Intake Total 1384 500 Output Total 1300 Balance 1384 -800 Lab Results - Last 24 hrs: Laboratory Results - last 24 hr 06/01/20 06/02/20 06/02/20 Range/Units 13:05 04:13 04:13 WBC 9.78 H (4.23-9.07) K/mm3 RBC 3.62 L (4.63-6.08) M/mm3 Hgb 11.6 L (13.7-17.5) gm/dl Hct 36.5 L (40.1-51.0) % MCV 100.8 H (79.0-92.2) fl MCH 32.0 (25.7-32.2) pg MCHC 31.8 L (32.2-35.5) g/dl RDW Std Deviation 43.8 (35.1-43.9) fL Plt Count 166 (163-337) K/mm3 MPV 10.7 (9.4-12.3) fl Neut % (Auto) 85.2 H (34.0-67.9) % Lymph % (Auto) 7.6 L (21.8-53.1) % Mchenry % (Auto) 7.0 (5.3-12.2) % Eos % (Auto) 0 L (0.8-7.0) Baso % (Auto) 0.0 L (0.1-1.2) % Neut # (Auto) 8.34 H (1.78-5.38) K/mm3 Lymph # (Auto) 0.74 L (1.32-3.57) K/mm3 Mchenry # (Auto) 0.68 (0.30-0.82) K/mm3 Eos # (Auto) 0.00 L (0.04-0.54) K/mm3 Baso # (Auto) 0.00 L (0.01-0.08) K/mm3 Manual Slide Review Abnormal smear PT 14.5 H (9.7-11.7) SECONDS INR 1.36 Sodium 138 (136-145) mEq/L Potassium 4.2 (3.5-5.1) mEq/L Chloride 103 (98-107) mEq/L Carbon Dioxide 28 (21-32) mEq/L Anion Gap 11.2 (5-15) BUN 16 (7-18) mg/dL Creatinine 1.1 (0.7-1.3) mg/dL Est Cr Clr Drug Dosing 68.45 mL/min Estimated GFR (MDRD) > 60 (>60) mL/min BUN/Creatinine Ratio 14.5 (14-18) Glucose 144 H (80-115) mg/dL Calcium 8.7 (8.5-10.1) mg/dL Phosphorus 2.5 L (2.6-4.7) mg/dL Magnesium 2.3 (1.8-2.4) mg/dl Med Orders - Current: Current Medications Acetaminophen (Tylenol) 650 mg PO TID [facility] Last Admin: 06/02/20 09:47 Dose: 650 mg Documented by: Cholecalciferol (Vitamin D3) 25 mcg PO DAILY [facility] Last Admin: 06/02/20 09:46 Dose: 25 mcg Documented by: Enoxaparin Sodium (Lovenox) 100 mg SUBCUT Q12H [facility] Fish Oil (Fish Oil) 1 gm PO BID [facility] Last Admin: 06/02/20 09:45 Dose: 1 gm Documented by: Gabapentin (Neurontin) 900 mg PO BID [facility] Last Admin: 06/02/20 09:45 Dose: 900 mg Documented by: Gabapentin (Neurontin) 1,200 mg PO 1200 [facility] Last Admin: 06/01/20 13:56 Dose: 1,200 mg Documented by: Hydromorphone HCl (Dilaudid) 0.5 mg IVPUSH Q2H PRN PRN Reason: Pain (severe 7-10) Last Admin: 06/01/20 02:33 Dose: 0.5 mg Documented by: Lactated Ringer's (Ringers, Lactated) 1,000 mls @ 100 mls/hr IV ASDIRECTED [facility] Last Admin: 06/02/20 00:22 Dose: 100 mls/hr Documented by: Piperacillin Sod/Tazobactam (Sod 4.5 gm/ Sodium Chloride) 100 mls @ 25 mls/hr IV Q8H [facility] Last Admin: 06/02/20 04:12 Dose: 25 mls/hr Documented by: Metoprolol Succinate (Toprol Xl) 25 mg PO DAILY [facility] Last Admin: 06/02/20 09:46 Dose: 25 mg Documented by: Miscellaneous Information (Remove Patch) 1 ea TRDERM ONETIME ONE Stop: 06/03/20 13:01 Ondansetron HCl (Zofran) 4 mg IVPUSH Q6H PRN PRN Reason: Nausea Oxycodone HCl (Oxycodone) 5 mg PO Q4H PRN PRN Reason: Abdominal Pain Warfarin S[facility] Warfarin Sodium (Coumadin) 10 mg PO SUTUTHSA [facility] Last Admin: 06/01/20 18:13 Dose: 10 mg Documented by: Discontinued Medications Albuterol (Proventil Neb Soln) 2.5 mg NEB ONETIME ONE Stop: 06/01/20 07:39 Last Admin: 06/01/20 09:00 Dose: 2.5 mg Documented by: Bupivacaine HCl (Marcaine 0.5%) Confirm Administered Dose 30 ml .ROUTE .STK-MED ONE Stop: 06/01/20 09:06 Last Admin: 06/01/20 10:35 Dose: 28 ml Documented by: Dexamethasone (Dexamethasone) Confirm Administered Dose 20 mg .ROUTE .STK-MED ONE Stop: 06/01/20 08:56 Diphenhydramine HCl (Benadryl) 25 mg IVPUSH ONETIME ONE Stop: 05/31/20 13:03 Last Admin: 05/31/20 13:12 Dose: 25 mg Documented by: Diphenhydramine HCl (Benadryl) Confirm Administered Dose 50 mg .ROUTE .STK-MED ONE Stop: 05/31/20 13:07 Last Admin: 05/31/20 13:14 Dose: Not Given Documented by: Fentanyl (Sublimaze) Confirm Administered Dose 250 mcg .ROUTE .STK-MED ONE Stop: 06/01/20 08:55 Fentanyl (Sublimaze) 50 mcg IVPUSH Q5M PRN PRN Reason: Pain Stop: 06/01/20 13:30 Gabapentin (Neurontin) 1,200 mg PO 1200 [place] Glycopyrrolate (Robinul) Confirm Administered Dose 0.4 mg .ROUTE .STK-MED ONE Stop: 06/01/20 11:23 Hydromorphone HCl (Dilaudid) 1 mg IVPUSH Q2H PRN PRN Reason: Pain Last Admin: 05/31/20 06:00 Dose: 1 mg Documented by: Hydromorphone HCl (Dilaudid) 0.5 mg IVPUSH Q10M PRN PRN Reason: Pain (severe 7-10) Stop: 06/01/20 13:30 Sodium Chloride (Normal Saline) 250 mls @ 100 mls/hr IV ASDIRECTED [place] Stop: 05/31/20 16:00 Sodium Chloride (Normal Saline (Advbag)) Confirm Administered Dose 250 mls @ as directed .ROUTE .STK-MED ONE Stop: 05/31/20 10:47 Last Admin: 05/31/20 11:14 Dose: 100 mls/hr Documented by: Piperacillin Sod/Tazobactam (Sod 4.5 gm/ Sodium Chloride) 100 mls @ 200 mls/hr IV ONETIME ONE Stop: 05/31/20 12:29 Last Admin: 05/31/20 13:13 Dose: 200 mls/hr Documented by: Phytonadione 5 mg/ Sodium (Chloride) 50.5 mls @ 100 mls/hr IV ONETIME ONE Stop: 05/31/20 17:45 Last Admin: 05/31/20 17:36 Dose: 100 mls/hr Documented by: Phytonadione 5 mg/ Sodium (Chloride) 50.5 mls @ 100 mls/hr IV NOW ONE Stop: 05/31/20 23:33 Last Admin: 05/31/20 23:50 Dose: 100 mls/hr Documented by: Lidocaine HCl (Xylocaine-Mpf 1%) Confirm Administered Dose 4 mls @ as directed .ROUTE .STK-MED ONE Stop: 06/01/20 08:54 Lactated Ringer's (Ringers, Lactated) Confirm Administered Dose 1,000 mls @ as directed .ROUTE .STK-MED ONE Stop: 06/01/20 08:54 Magnesium Sulfate (Magnesium Sulfate In Water Premix) 2 gm in 50 mls @ 25 mls/hr IV ONETIME ONE Stop: 06/01/20 13:59 Last Admin: 06/01/20 13:58 Dose: 25 mls/hr Documented by: Ketamine HCl (Ketalar) Confirm Administered Dose 500 mg .ROUTE .STK-MED ONE Stop: 06/01/20 10:31 Ketorolac Tromethamine (Toradol) Confirm Administered Dose 30 mg .ROUTE .STK-MED ONE Stop: 06/01/20 08:56 Metoprolol Succinate (Toprol Xl) 25 mg PO ONETIME ONE Stop: 06/01/20 07:35 Last Admin: 06/01/20 07:52 Dose: 25 mg Documented by: Midazolam HCl (Versed 1 Mg/Ml) Confirm Administered Dose 2 mg .ROUTE .STK-MED ONE Stop: 06/01/20 08:55 Neostigmine Methylsulfate (Neostigmine Methylsulfate) Confirm Administered Dose 5 mg .ROUTE .STK-MED ONE Stop: 06/01/20 11:23 Ondansetron HCl (Zofran) Confirm Administered Dose 4 mg .ROUTE .STK-MED ONE Stop: 06/01/20 08:54 Ondansetron HCl (Zofran) 4 mg IVPUSH ONETIME PRN PRN Reason: Nausea/Vomiting Stop: 06/01/20 13:30 Phytonadione (Aquamephyton) 5 mg PO ONETIME ONE Stop: 05/31/20 02:05 Last Admin: 05/31/20 02:21 Dose: 5 mg Documented by: Propofol (Diprivan 20 Ml) Confirm Administered Dose 400 mg .ROUTE .STK-MED ONE Stop: 06/01/20 08:55 Propofol (Diprivan 20 Ml) Confirm Administered Dose 200 mg .ROUTE .STK-MED ONE Stop: 06/01/20 10:32 Rocuronium [place] (Zemuron) Confirm Administered Dose 50 mg .ROUTE .STK-MED ONE Stop: 06/01/20 08:54 Scopolamine (Transderm-Scop) 1.5 mg TRDERM ONETIME PRN PRN Reason: PONV Last Admin: 05/31/20 13:12 Dose: 1.5 mg Documented by: Sodium Phosphate (Neutra-Phos) 250 mg PO ONETIME ONE Stop: 06/02/20 09:09 Last Admin: 06/02/20 09:46 Dose: 250 mg Documented by: - Exam General: Reports: Alert, Oriented, Cooperative Lungs: Reports: Clear to Auscultation, Normal Respiratory Effort Cardiovascular: Reports: Regular Rate, Regular Rhythm, No Murmurs GI/Abdominal Exam: Soft, No Organomegaly, No Distention, No Abnormal Bruit, Tender (RLQ) Wound/Incisions: Reports: Healing Well, Dressing Dry and Intact, No Drainage
--- NOTE | 2020-06-02 11:08 | PCM48HPAN ---
Post Anesthesia Note - EVALUATION WITHIN 48HRS OF ANESTHETIC Vital Signs in Normal Range: Yes Patient Participated in Evaluation: Yes Respiratory Function Stable: Yes (On CPAP same settings at he has at home. ) Airway Patent: Yes Cardiovascular Function Stable: Yes Hydration Status Stable: Yes Pain Control Satisfactory: Yes Nausea and Vomiting Control Satisfactory: Yes Mental Status Recovered: Yes Vital Signs: Last Vital Signs Temp 36.6 C 06/02/20 02:55 Pulse 69 06/02/20 09:46 Resp 18 06/02/20 02:55 BP 126/68 06/02/20 09:46 Pulse Ox 93 L 06/02/20 10:31
[2020-06-02] MEDS ORDERED: Gabapentin 600 MG Tab PO SCH (12:00)
[2020-06-02] MEDS: Gabapentin 600 MG Tab PO SCH (12:20)
[2020-06-02] MEDS ORDERED: Warfarin 7.5 MG Tab PO SCH (18:00)
== END 2020-06-02 12:30 | disposition home or self-care (01) | DRG 340 ==
LOC: JD.MS 01:29 → JD.OB 18:45
PROVIDERS: ADMIT Surgery; ATTEND Surgery
PROC: 0DTJ4ZZ Resection of Appendix, Percutaneous Endoscopic Approach (ICD-10-PCS; principal; 2020-06-01)
DX: K35.32 Acute appendicitis with perforation, localized peritonitis, and gangrene, without abscess (principal); Z86.718 Personal history of other venous thrombosis and embolism; Z79.01 Long term (current) use of anticoagulants; Z86.711 Personal history of pulmonary embolism
CPT/HCPCS: 00840; 36415; 36430; 80048; 83735; 84100; 85025; 85610; 86900; 86901; 93005; 94640; 94660; 94761; A9270-GY; J0330; J1100; J1170; J1200; J1650; J1885; J2001; J2250; J2405; J2543; J2704; J2710; J3010; J3430; J3475; J3490; J7050; J7120; P9017